=== PATIENT | male | born 1965 | race Caucasian/White ===

== ENCOUNTER → 2021-12-11 15:38 | Outpatient (BNVA) | payer BC, SELFPAY | PROVIDERS: Family Provider Nurse Practitioner Family; PCP Nurse Practitioner Family; Visit Provider Surgery | DX: Z20.822 Contact with and (suspected) exposure to COVID-19 (principal) | CPT/HCPCS: 87635 ==

== ENCOUNTER 2021-12-18 07:18 | Day surgery (SDC) | payer BC, SELFPAY ==
[2021-12-15 13:37] VITALS: BMI 30.4
--- NOTE | 2021-12-18 06:49 | P.ANESASSM_ITS ---
Pre-Anesthetic Assessment Height/Weight: Height 1.73 m Weight 90.718 kg Preop Diagnosis: screening Operation Date: 12/18/21 08:30 Proposed Procedures p Colonoscopy 60220 Z12.11(Not Applicable) - Rj Srinivasan MD Familial anesthetic complications: none Was Beta Tre taken within 24 hours: N/A Was Clonidine taken within 24 hours: N/A Social Tobacco and No alcohol Exam alert, oriented x 3, clear to auscultation bilaterally and regular rate & rhythm Airway Submandibular: within normal limits Cervical ROM: within normal limits Mallampati: Class II Dentition: chipped Pulmonary None reported CV/HEM None reported None reported Hepatic None reported GI None reported Metabolic None reported Musc/skel None reported Neuropsych None reported Anesthetic Plan ASA status: 2 (56 year old smoker ) Anesthesia: Anesthesia Evaluation, General and MAC Other: I discussed with the patient risks, goals, and benefits of MAC and general anesthesia. We discussed spectrum of MAC anesthesia including conversion to gen eral as well as possibility of recall of intraoperative stimuli including discomfort/pain. Patient agrees to proceed with MAC. Risk of > 500 ml blood loss (7ml/kg in children): No Medications/Allergies Home Medications Medication Instructions Recorded Confirmed Last Taken Type atorvastatin 20 mg tablet 20 mg PO DAILY 12/14/19 12/15/21 12/16/21 History fluticasone propionate 50 1 spray INTRANASAL DAILY 12/14/19 12/15/21 12/16/21 History mcg/actuation nasal spray,suspension (Flonase Allergy Relief) telmisartan 40 mg tablet 40 mg PO DAILY 12/14/19 12/15/21 12/16/21 History Allergies Allergy/AdvReac Type Severity Reaction Status Date / Time No Known Allergies Allergy Verified 12/14/19 16:03 Data Anesthesia Cardiac Studies: No Data to Display
[2021-12-18 07:40] VITALS: BP 153/84; PULSE 93; RESP 18; TEMP 36.1; O2SAT 94
[2021-12-18] MEDS: sodium chloride 0.9% 1,000 ML 30 ML IV (07:43)
--- NOTE | 2021-12-18 08:08 | P.HP_ITS ---
Same Day Surgery H&P Indication for Procedure/HPI DATE OF PROCEDURE: December 18, 2021 CHIEF COMPLAINT/INDICATIONFOR SURGICAL PROCEDURE: Screening colonoscopy PREOP DIAGNOSIS: screening colonoscopy PLANNED PROCEDURE: Operation Date: 12/18/21 08:30 Proposed Procedures p Colonoscopy 31028 Z12.11(Not Applicable) - Rj Srinivasan MD This is a pleasant 56 y old gentleman comes today for screening colonoscopy, patient reports occasional blood in stool but otherwise no history of colon cancer or weight loss. Medications/Allergies* Home Medications Medication Instructions Recorded Confirmed Type atorvastatin 20 mg tablet 20 mg PO DAILY 12/14/19 12/15/21 History fluticasone propionate 50 1 spray INTRANASAL DAILY 12/14/19 12/15/21 History mcg/actuation nasal spray,suspension (Flonase Allergy Relief) telmisartan 40 mg tablet 40 mg PO DAILY 12/14/19 12/15/21 History Allergies/Adverse Reactions Allergy/AdvReac Type Severity Reaction Status Date / Time No Known Allergies Allergy Verified 12/18/21 08:39 Current Medications: Generic Name Dose Route Start Last Admin Trade Name Freq PRN Reason Stop Dose Admin Sodium Chloride 1,000 mls @ 30 mls/hr 12/18/21 07:30 12/18/21 07:43 Sodium Chloride 0.9% IV 12/19/21 07:29 30 mls/hr .Q24H CAMERON Administration Pertinent Exam Findings alert, oriented x 3, clear to auscultation bilaterally, regular rate & rhythm and procedure specific exam findings (Abdominal examination nontender nondistended soft) Recommendations Surgery/Procedure today (Colonoscopy with possible biopsy) Other Plans: Plan of care; After thorough history and physical examination and reviewing the chart, plan to perform screening colonoscopy. I discussed with the patient in details the risks,benefits,alternatives and indications.The risk of aspiration, bleeding, soft tissue injury, perforation of the colon and other potential concomitant complications were explained to the patient in details,also the potential need for Laproscoy/Laparotomy to repair any related complications including but not limited to colectomy and or Closotomy.The patient understood this well and did agree to proceed. Rationale was carefully and clearly discussed with the patient.Appropriate informed consent have been reviewed and signed All questions have been answered and all concerns have been addressed to patient's satisfaction. Verbal and written Instructions were given to the patient for colonoscopy prep Coding Level of Care Code Acute Agricultural Research Engineer for Chg Fwd
[2021-12-18 09:21] VITALS: BP 110/68; PULSE 86; RESP 18; TEMP 36.2; O2SAT 91
[2021-12-18 09:32] VITALS: BP 118/80; PULSE 85; RESP 18; O2SAT 90
--- NOTE | 2021-12-18 10:13 | ANE.PACU2 ---
Inpatient post-anesthesia follow up: Airway intact: Yes Vital signs: Temperature 97.2 F Pulse Rate 85 Respiratory Rate 18 Blood Pressure 118/80 Pulse Oximetry 90 Oxygen Delivery Me thod Nasal Cannula Oxygen Flow Rate 2 Fraction of Inspir ed Oxygen Hydration adequate: Yes Nausea and vomiting: No Pain level: 1 Mental status: Baseline
== END 2021-12-18 09:49 | disposition home or self-care (01) ==
PROVIDERS: Family Provider Nurse Practitioner Family; PCP Nurse Practitioner Family; Visit Provider Surgery
PROC: 0DJD8ZZ Inspection of Lower Intestinal Tract, Via Natural or Artificial Opening Endoscopic (ICD-10-PCS; CPT 45378; principal; 2021-12-18 08:30)
DX: Z12.11 Encounter for screening for malignant neoplasm of colon (principal); D12.8 Benign neoplasm of rectum
CPT/HCPCS: 45385; 88305; J2704; J7030